=== PATIENT | female | born 1950 | race Caucasian/White ===

== ENCOUNTER 2021-01-30 11:36 | Inpatient (IN) ==
[2021-01-30] MEDS ORDERED: Melatonin 3 MG TABLET PO PRN (14:21)
[2021-01-30] MEDS ORDERED: Naloxone 0.4 MG/ML INJ IVP PRN (14:21)
[2021-01-30] MEDS ORDERED: 0.9 % Sodium Chloride 1,000 ML IVC SCH (14:30)
[2021-01-30] MEDS ORDERED: MetroNIDAZOLE 500 MG/100 ML 500 MG/100 ML BAG IVPB SCH (15:00)
[2021-01-30] MEDS: MetroNIDAZOLE 500 MG/100 ML 500 MG/100 ML BAG IVPB SCH (15:34)
[2021-01-30 16:41] LABS: Albumin 2.5 g/dL (3.5-5.7); Albumin/Globulin Ratio 1.1 (1.1-2.2); Bilirubin,Total 0.7 mg/dL (0.3-1.0); Calcium 7.2 mg/dL (8.6-10.3); Globulin 2.2 g/dL (2.4-3.5); Magnesium 1.6 mg/dL (1.6-2.6); Potassium 4.3 mEq/L (3.5-5.1); Total Protein 4.7 g/dL (6.4-8.9)
[2021-01-30 18:47] LABS: Basophils % 0.3 %; Hemoglobin 8.5 g/dL (11.5-15.4); Immature Granulocytes % 0.3 % (0-4); Lymphocytes % 4.4 %; White Blood Count 14.7 K/mcL (4.3-11.1)
[2021-01-30 18:49] LABS: Hematocrit 27.5 % (35.3-44.9); Mean Corpuscular HGB Conc 30.9 g/dL (31.6-35.5); Mean Corpuscular Hemoglobin 33.3 pg (28.0-33.3); Mean Corpuscular Volume 107.8 fL (83.0-100.0); Mean Platelet Volume 11.1 fL (9.4-12.4); Monocytes # 0.6 K/mcL (0.0-1.3); Monocytes % 4.1 %; Neutrophils # 13.2 K/mcL (1.6-8.9); Red Blood Count 2.55 M/mcL (3.82-4.97); Red Cell Distribution Width 16.9 % (11.5-14.5); Segmented Neutrophils % 89.9 %
[2021-01-30] MEDS: *HR* Heparin 5,000 UNIT/ML VIAL SQ SCH (19:11)
[2021-01-30 19:20] LABS: Eosinophils # 0.2 K/mcL (0.0-0.6); Lymphocytes # 0.7 K/mcL (0.6-4.6)
[2021-01-30 19:21] LABS: Platelet Count 66 K/mcL (140-400)
[2021-01-30 19:22] LABS: Platelet Estimate Decreased (Normal)
[2021-01-31] MEDS: MetroNIDAZOLE 500 MG/100 ML 500 MG/100 ML BAG IVPB SCH ×4 (00:23→23:33)
[2021-01-31] MEDS: *HR* Heparin 5,000 UNIT/ML VIAL SQ SCH ×2 (05:25→20:22)
[2021-01-31] MEDS ORDERED: cefOXitin 1,000 MG, 0.9 % Sodium Chloride 1,000 ML IR ONE (08:00)
[2021-01-31] MEDS ORDERED: Albumin 25% 25gram/100mL 25 GM/100 ML IV.SOLN IVPB ONE (08:46)
[2021-01-31] MEDS ORDERED: *HR* Heparin 10,000 UNIT/10 ML VIAL IV PRN (08:46)
[2021-01-31] MEDS ORDERED: 0.9 % Sodium Chloride 250 ML IVC PRN (08:46)
[2021-01-31 08:56] LABS: Hepatitis B Surface Antibody 7.07 mIU/mL
[2021-01-31] MEDS ORDERED: 0.9 % Sodium Chloride 1,000 ML PRIME SCH (09:00)
[2021-01-31 09:07] LABS: Hepatitis B Surface Antigen Nonreactive (Nonreactive)
[2021-01-31] MEDS: Nystatin POWDER 30 GM BOTTLE TP SCH ×3 (11:14→20:23)
[2021-01-31] MEDS ORDERED: *HR* FentaNYL (PF) 100 MCG/2 ML VIAL ONE (12:14)
[2021-01-31] MEDS ORDERED: *HR* Propofol 200 MG/20 ML VIAL IVP ONE (12:14)
[2021-01-31] MEDS ORDERED: *HR* OxyCODONE/APAP 5/325 TABLET PO PRN (12:22)
[2021-01-31] MEDS ORDERED: Ketorolac 15 MG/ML VIAL IVP PRN (12:23)
[2021-01-31] MEDS ORDERED: *HR* Rocuronium Bromide 50 MG/5 ML VIAL ONE (12:28)
[2021-01-31] MEDS ORDERED: Lidocaine -MPF 2% 5 ML VIAL ONE (12:28)
[2021-01-31] MEDS ORDERED: Ondansetron 4 MG/2 ML VIAL ONE (12:28)
[2021-01-31] MEDS ORDERED: Lidocaine HCL 4 ML Topical Solution (Laryng-O-Jet Kit Sterile Pak) TP ONE (12:28)
[2021-01-31] MEDS ORDERED: *HR* Succinylcholine 200 MG/10 ML VIAL IVP ONE (12:28)
[2021-01-31] MEDS: Ketorolac 30 MG/ML VIAL IVP PRN ×2 (12:57→20:17)
[2021-01-31] MEDS ORDERED: CefOXitin 1,000 MG VIAL ONE (15:37)
[2021-01-31] MEDS ORDERED: Isovue-300 50ML VIAL ONE (15:38)
[2021-01-31] MEDS ORDERED: Sugammadex Sodium 200 MG/2 ML VIAL IV ONE (17:55)
[2021-02-01] MEDS: Ketorolac 30 MG/ML VIAL IVP PRN (02:51)
[2021-02-01] MEDS: *HR* Heparin 5,000 UNIT/ML VIAL SQ SCH (06:54)
[2021-02-01] MEDS ORDERED: cefOXitin 1,000 MG, 0.9 % Sodium Chloride 1,000 ML IR ONE (07:28)
[2021-02-01] MEDS ORDERED: 0.9 % Sodium Chloride 250 ML IVC PRN (07:28)
[2021-02-01] MEDS ORDERED: Naloxone 0.4 MG/ML INJ IVP PRN ×2 (07:28→16:01)
[2021-02-01] MEDS ORDERED: Ketorolac 30 MG/ML VIAL IVP PRN (07:28)
[2021-02-01] MEDS ORDERED: *HR* OxyCODONE/APAP 5/325 TABLET PO PRN (07:28)
[2021-02-01] MEDS ORDERED: *HR* Heparin 10,000 UNIT/10 ML VIAL IV PRN (07:28)
[2021-02-01] MEDS ORDERED: Melatonin 3 MG TABLET PO PRN (07:28)
[2021-02-01] MEDS ORDERED: 0.9 % Sodium Chloride 1,000 ML PRIME SCH (07:28)
[2021-02-01] MEDS: MetroNIDAZOLE 500 MG/100 ML 500 MG/100 ML BAG IVPB SCH ×2 (08:22→18:53)
[2021-02-01 08:26] LABS: Hematocrit 22.9 % (35.3-44.9); Immature Platelets 6.5 % (1.1-6.1); Mean Corpuscular HGB Conc 30.6 g/dL (31.6-35.5); Mean Platelet Volume 11.4 fL (9.4-12.4); Red Blood Count 2.12 M/mcL (3.82-4.97); White Blood Count 13.4 K/mcL (4.3-11.1)
[2021-02-01] MEDS: Nystatin POWDER 30 GM BOTTLE TP SCH ×3 (08:29→20:22)
[2021-02-01 08:43] LABS: Calcium 7.5 mg/dL (8.6-10.3); Potassium 4.2 mEq/L (3.5-5.1)
[2021-02-01 08:51] LABS: Albumin 2.8 g/dL (3.5-5.7); Albumin/Globulin Ratio 1.4 (1.1-2.2); Bilirubin,Direct 0.2 mg/dL (0.0-0.2); Bilirubin,Indirect 0.6 mg/dL (0.0-1.0); Bilirubin,Total 0.8 mg/dL (0.3-1.0); Total Protein 4.8 g/dL (6.4-8.9)
[2021-02-01] MEDS ORDERED: 0.9 % Sodium Chloride 250 ML ONE (11:04)
[2021-02-01] MEDS: 0.9 % Sodium Chloride 250 ML IVC ONE (11:13)
[2021-02-01] MEDS ORDERED: *HR* FentaNYL (PF) 100 MCG/2 ML VIAL ONE ×2 (15:22→17:02)
[2021-02-01] MEDS ORDERED: *HR* Propofol 200 MG/20 ML VIAL IVP ONE (15:22)
[2021-02-01] MEDS ORDERED: Lidocaine -MPF 2% 2 ML VIAL ONE (15:23)
[2021-02-01] MEDS ORDERED: *HR* Rocuronium Bromide 50 MG/5 ML VIAL ONE (15:23)
[2021-02-01] MEDS ORDERED: Ondansetron 4 MG/2 ML VIAL ONE (15:23)
[2021-02-01] MEDS ORDERED: Nitroglycerin 0.4 MG TAB.SUBL SL PRN (16:01)
[2021-02-01] MEDS ORDERED: *HR* FentaNYL (PF) 100 MCG/2 ML VIAL IVP PRN (16:01)
[2021-02-01] MEDS ORDERED: *HR* HYDROmorphone (PF) 1 MG/ML SYRINGE IVP PRN (16:01)
[2021-02-01] MEDS ORDERED: Albuterol 2.5 MG/3 ML NEBULIZER IH PRN (16:01)
[2021-02-01] MEDS ORDERED: Ondansetron 4 MG/2 ML VIAL IVP PRN (16:01)
[2021-02-01] MEDS ORDERED: Indomethacin 50 MG SUPP.RECT RC ONE (16:25)
[2021-02-01] MEDS ORDERED: *HR* Heparin 5,000 UNIT/ML VIAL SQ SCH (18:00)
[2021-02-01] MEDS: rOPINIRole 1 MG TABLET PO SCH (20:22)
[2021-02-02] MEDS: 0.9 % Sodium Chloride 250 ML IVC ONE (02:04)
[2021-02-02] MEDS: MetroNIDAZOLE 500 MG/100 ML 500 MG/100 ML BAG IVPB SCH ×3 (02:23→16:11)
[2021-02-02] MEDS ORDERED: Ringers Solution, Lactated 1,000 ML IVC ONE (07:47)
[2021-02-02] MEDS: rOPINIRole 1 MG TABLET PO SCH ×2 (07:54→19:33)
[2021-02-02] MEDS: Nystatin POWDER 30 GM BOTTLE TP SCH ×3 (07:56→19:33)
[2021-02-02 08:02] LABS: Hematocrit 20.7 % (35.3-44.9); Lymphocytes % 7.9 %
[2021-02-02 08:04] LABS: Basophils % 0.1 %; Hemoglobin 6.2 g/dL (11.5-15.4); Immature Granulocytes % 0.5 % (0-4); Immature Platelets 6.1 % (1.1-6.1); Lymphocytes # 0.7 K/mcL (0.6-4.6); Mean Corpuscular Hemoglobin 32.6 pg (28.0-33.3); Mean Corpuscular Volume 108.9 fL (83.0-100.0); Mean Platelet Volume 11.8 fL (9.4-12.4); Monocytes # 0.4 K/mcL (0.0-1.3); Neutrophils # 7.7 K/mcL (1.6-8.9); Red Cell Distribution Width 17.2 % (11.5-14.5); Segmented Neutrophils % 87.5 %; White Blood Count 8.8 K/mcL (4.3-11.1)
[2021-02-02 08:05] LABS: Platelet Count 71 K/mcL (140-400)
[2021-02-02 08:14] LABS: Albumin 2.7 g/dL (3.5-5.7); Albumin/Globulin Ratio 1.3 (1.1-2.2); Bilirubin,Direct 0.2 mg/dL (0.0-0.2); Bilirubin,Indirect 0.4 mg/dL (0.0-1.0); Bilirubin,Total 0.6 mg/dL (0.3-1.0); Calcium 7.5 mg/dL (8.6-10.3); Globulin 2.1 g/dL (2.4-3.5); Potassium 3.9 mEq/L (3.5-5.1); Total Protein 4.8 g/dL (6.4-8.9)
[2021-02-02] MEDS ORDERED: *HR* Heparin 10,000 UNIT/10 ML VIAL IV PRN ×2 (08:26)
[2021-02-02] MEDS ORDERED: 0.9 % Sodium Chloride 250 ML IVC PRN (08:26)
[2021-02-02 08:30] LABS: INR 1.6; Prothrombin Time 17.5 Seconds (9.4-12.1)
[2021-02-02] MEDS ORDERED: Albumin 25% 25gram/100mL 25 GM/100 ML IV.SOLN IVPB ONE (08:31)
[2021-02-02] MEDS ORDERED: Acyclovir 200 MG CAPSULE PO SCH (09:00)
[2021-02-02] MEDS ORDERED: Acetaminophen IV 1,000 MG/100 ML BAG IVPB ONE (09:40)
[2021-02-02] MEDS ORDERED: 0.9 % Sodium Chloride 250 ML IVC SCH (17:30)
[2021-02-02 18:04] LABS: Hemoglobin 6.1 g/dL (11.5-15.4)
[2021-02-03] MEDS: MetroNIDAZOLE 500 MG/100 ML 500 MG/100 ML BAG IVPB SCH ×4 (00:58→23:30)
[2021-02-03 05:15] LABS: Hemoglobin 7.2 g/dL (11.5-15.4)
[2021-02-03 05:17] LABS: Hematocrit 23.7 % (35.3-44.9); Immature Platelets 6.4 % (1.1-6.1); Mean Corpuscular HGB Conc 30.4 g/dL (31.6-35.5); Mean Corpuscular Hemoglobin 32.1 pg (28.0-33.3); Mean Corpuscular Volume 105.8 fL (83.0-100.0); Mean Platelet Volume 10.8 fL (9.4-12.4); Red Blood Count 2.24 M/mcL (3.82-4.97); Red Cell Distribution Width 19.8 % (11.5-14.5); White Blood Count 10.4 K/mcL (4.3-11.1)
[2021-02-03 05:32] LABS: Calcium 7.7 mg/dL (8.6-10.3); Potassium 3.3 mEq/L (3.5-5.1)
[2021-02-03] MEDS: rOPINIRole 1 MG TABLET PO SCH ×2 (07:51→19:54)
[2021-02-03] MEDS: Nystatin POWDER 30 GM BOTTLE TP SCH ×3 (08:05→21:13)
[2021-02-03] MEDS: Ondansetron 4 MG/2 ML VIAL IVP PRN ×2 (10:02→18:32)
[2021-02-03] MEDS ORDERED: *HR* Promethazine 25 MG/ML VIAL IM ONE (10:46)
[2021-02-03] MEDS ORDERED: Prochlorperazine 10 MG/2 ML VIAL IVP PRN ×2 (12:22→19:49)
[2021-02-03] MEDS ORDERED: *HR* HYDROmorphone (PF) 1 MG/ML SYRINGE IVP PRN (12:27)
[2021-02-03] MEDS ORDERED: Sulfamethoxazole/Trimeth SS 1 TAB PO SCH (16:00)
[2021-02-03] MEDS: Acyclovir 200 MG CAPSULE PO SCH (17:02)
[2021-02-03] MEDS ORDERED: Thiamine (B-1) 100 MG in 0.9 % Sodium Chloride 50 ML IVPB ONE (18:43)
[2021-02-03] MEDS ORDERED: Cyanocobalamin (B-12) 1,000 MCG/ML VIAL SQ ONE (18:43)
[2021-02-04] MEDS: Ondansetron 4 MG/2 ML VIAL IVP PRN (03:19)
[2021-02-04 05:33] LABS: Basophils % 0.7 %; Mean Corpuscular HGB Conc 29.3 g/dL (31.6-35.5)
[2021-02-04 05:35] LABS: Basophils # 0.1 K/mcL (0.0-0.2); Eosinophils # 0.9 K/mcL (0.0-0.6); Eosinophils % 8.9 %; Hematocrit 27.6 % (35.3-44.9); Hemoglobin 8.1 g/dL (11.5-15.4); Immature Granulocytes % 3.1 % (0-4); Immature Platelets 4.3 % (1.1-6.1); Lymphocytes # 1.4 K/mcL (0.6-4.6); Lymphocytes % 13.9 %; Mean Corpuscular Hemoglobin 32.4 pg (28.0-33.3); Mean Corpuscular Volume 110.4 fL (83.0-100.0); Monocytes # 0.7 K/mcL (0.0-1.3); Monocytes % 7.1 %; Neutrophils # 6.6 K/mcL (1.6-8.9); Nucleated Red Blood Cells 0.5 /100 WBC (0); Red Cell Distribution Width 20.2 % (11.5-14.5); Segmented Neutrophils % 66.3 %
[2021-02-04 05:36] LABS: Platelet Count 68 K/mcL (140-400)
[2021-02-04] MEDS ORDERED: Acetaminophen IV 1,000 MG/100 ML BAG IVPB ONE (05:50)
[2021-02-04 05:52] LABS: Macrocytosis Present (Not Present)
[2021-02-04 05:53] LABS: Anisocytosis 2+ (Not Present); Calcium 7.4 mg/dL (8.6-10.3); Magnesium 1.6 mg/dL (1.6-2.6); Phosphorous 2.5 mg/dL (2.7-4.5); Platelet Estimate Decreased (Normal); Potassium 4.1 mEq/L (3.5-5.1)
[2021-02-04] MEDS: rOPINIRole 1 MG TABLET PO SCH ×2 (08:13→19:46)
[2021-02-04] MEDS: MetroNIDAZOLE 500 MG/100 ML 500 MG/100 ML BAG IVPB SCH ×2 (08:13→15:47)
[2021-02-04] MEDS: Nystatin POWDER 30 GM BOTTLE TP SCH ×3 (08:17→19:47)
[2021-02-04] MEDS ORDERED: 0.9 % Sodium Chloride 250 ML IVC PRN (08:47)
[2021-02-04] MEDS ORDERED: *HR* Heparin 10,000 UNIT/10 ML VIAL IV PRN ×2 (08:47)
[2021-02-04] MEDS: Acyclovir 200 MG CAPSULE PO SCH (15:47)
[2021-02-05] MEDS ORDERED: Albumin 25% 25gram/100mL 25 GM/100 ML IV.SOLN IVPB ONE (00:09)
[2021-02-05] MEDS: MetroNIDAZOLE 500 MG/100 ML 500 MG/100 ML BAG IVPB SCH ×3 (00:25→14:26)
[2021-02-05 02:58] LABS: Immature Granulocytes % 4.2 % (0-4); Nucleated Red Blood Cells 0.9 /100 WBC (0); Red Blood Count 2.39 M/mcL (3.82-4.97); Red Cell Distribution Width 19.9 % (11.5-14.5)
[2021-02-05 03:00] LABS: Basophils # 0.1 K/mcL (0.0-0.2); Basophils % 0.7 %; Eosinophils # 0.7 K/mcL (0.0-0.6); Eosinophils % 8.2 %; Hematocrit 25.7 % (35.3-44.9); Hemoglobin 7.7 g/dL (11.5-15.4); Immature Platelets 5.3 % (1.1-6.1); Lymphocytes # 1.4 K/mcL (0.6-4.6); Mean Corpuscular Hemoglobin 32.2 pg (28.0-33.3); Mean Corpuscular Volume 107.5 fL (83.0-100.0); Mean Platelet Volume 11.2 fL (9.4-12.4); Monocytes # 0.7 K/mcL (0.0-1.3); Monocytes % 7.9 %
[2021-02-05 03:15] LABS: Neutrophils # 5.7 K/mcL (1.6-8.9); Platelet Count 72 K/mcL (140-400)
[2021-02-05 03:20] LABS: Calcium 7.7 mg/dL (8.6-10.3); Magnesium 1.6 mg/dL (1.6-2.6); Potassium 3.8 mEq/L (3.5-5.1)
[2021-02-05] MEDS: rOPINIRole 1 MG TABLET PO SCH ×2 (09:18→22:45)
[2021-02-05] MEDS: Nystatin POWDER 30 GM BOTTLE TP SCH ×3 (09:22→22:45)
[2021-02-05 11:44] LABS: Adenovirus F 40/41 PCR Not detected (Not detect); Astrovirus PCR Not detected (Not detect); C.difficile Toxin A/B Gene PCR Not detected (Not detect); Campylobacter by PCR Not detected (Not detect); Cryptosporidium by PCR Not detected (Not detect); Cyclospora cayetanensis PCR Not detected (Not detect); E. coli O157 by PCR Not detected (Not detect); Entamoeba histolytica PCR Not detected (Not detect); Enteroaggregative E.coli(EAEC) Not detected (Not detect); Enteropathogenic E.coli(EPEC) Not detected (Not detect); Enterotoxigenic E.coli (ETEC) Not detected (Not detect); Giardia lamblia PCR Not detected (Not detect); Norovirus GI/GII PCR Not detected (Not detect); Plesiomonas shigelloides PCR Not detected (Not detect); Rotavirus A PCR Not detected (Not detect); Salmonella PCR Not detected (Not detect); Sapovirus PCR Not detected (Not detect); Shig/EnteroinvasiveE coli EIEC Not detected (Not detect); Shigalike tox-prod E coli STEC Not detected (Not detect); Vibrio PCR Not detected (Not detect); Vibrio cholerae PCR Not detected (Not detect); Yersinia enterocolitica PCR Not detected (Not detect)
[2021-02-05] MEDS ORDERED: 0.9 % Sodium Chloride 1,000 ML IV ONE (14:15)
[2021-02-05] MEDS: Acyclovir 200 MG CAPSULE PO SCH (14:25)
[2021-02-05] MEDS: *HR* OxyCODONE/APAP 5/325 TABLET PO PRN (14:25)
[2021-02-06 05:42] LABS: Basophils % 0.9 %; Eosinophils % 9.8 %; Hemoglobin 8.2 g/dL (11.5-15.4); INR 1.2; Prothrombin Time 13.1 Seconds (9.4-12.1)
[2021-02-06 05:44] LABS: Basophils # 0.1 K/mcL (0.0-0.2); Eosinophils # 1.1 K/mcL (0.0-0.6); Immature Granulocytes % 4.1 % (0-4); Immature Platelets 6.3 % (1.1-6.1); Lymphocytes # 1.8 K/mcL (0.6-4.6); Lymphocytes % 15.5 %; Mean Corpuscular HGB Conc 29.3 g/dL (31.6-35.5); Mean Corpuscular Hemoglobin 31.9 pg (28.0-33.3); Mean Corpuscular Volume 108.9 fL (83.0-100.0); Mean Platelet Volume 11.8 fL (9.4-12.4); Monocytes # 0.7 K/mcL (0.0-1.3); Monocytes % 6.4 %; Neutrophils # 7.2 K/mcL (1.6-8.9); Nucleated Red Blood Cells 0.8 /100 WBC (0); Red Blood Count 2.57 M/mcL (3.82-4.97); Segmented Neutrophils % 63.3 %; White Blood Count 11.3 K/mcL (4.3-11.1)
[2021-02-06 05:46] LABS: Calcium 7.6 mg/dL (8.6-10.3); Magnesium 1.6 mg/dL (1.6-2.6); Phosphorous 2.7 mg/dL (2.7-4.5); Potassium 3.9 mEq/L (3.5-5.1)
[2021-02-06 06:12] LABS: Platelet Count 77 K/mcL (140-400)
[2021-02-06 06:13] LABS: Anisocytosis 2+ (Not Present); Hypochromasia Present (Not Present); Macrocytosis Present (Not Present); Polychromasia 1+ (Not Present)
[2021-02-06 06:14] LABS: Platelet Estimate Decreased (Normal)
[2021-02-06] MEDS: Nystatin POWDER 30 GM BOTTLE TP SCH ×3 (10:19→22:10)
[2021-02-06] MEDS: rOPINIRole 1 MG TABLET PO SCH ×2 (10:21→22:10)
[2021-02-06] MEDS: Acyclovir 200 MG CAPSULE PO SCH (16:12)
[2021-02-06] MEDS: Ondansetron 4 MG/2 ML VIAL IVP PRN (23:14)
[2021-02-07 07:13] LABS: Basophils % 0.6 %; Hemoglobin 8.3 g/dL (11.5-15.4)
[2021-02-07 07:15] LABS: Basophils # 0.1 K/mcL (0.0-0.2); Eosinophils # 1.1 K/mcL (0.0-0.6); Eosinophils % 10.4 %; Hematocrit 27.9 % (35.3-44.9); Immature Granulocytes % 3.8 % (0-4); Immature Platelets 5.5 % (1.1-6.1); Lymphocytes # 1.8 K/mcL (0.6-4.6); Lymphocytes % 17.5 %; Mean Corpuscular HGB Conc 29.7 g/dL (31.6-35.5); Mean Corpuscular Hemoglobin 31.9 pg (28.0-33.3); Mean Corpuscular Volume 107.3 fL (83.0-100.0); Mean Platelet Volume 10.8 fL (9.4-12.4); Monocytes # 0.8 K/mcL (0.0-1.3); Monocytes % 7.8 %; Neutrophils # 6.1 K/mcL (1.6-8.9); Nucleated Red Blood Cells 0.4 /100 WBC (0); Red Cell Distribution Width 19.9 % (11.5-14.5); Segmented Neutrophils % 59.9 %; White Blood Count 10.2 K/mcL (4.3-11.1)
[2021-02-07 07:21] LABS: Calcium 7.5 mg/dL (8.6-10.3); Magnesium 1.6 mg/dL (1.6-2.6); Potassium 3.8 mEq/L (3.5-5.1)
[2021-02-07 07:25] LABS: Platelet Count 75 K/mcL (140-400)
[2021-02-07] MEDS: rOPINIRole 1 MG TABLET PO SCH ×2 (09:31→20:43)
[2021-02-07] MEDS: Nystatin POWDER 30 GM BOTTLE TP SCH ×3 (09:32→20:44)
[2021-02-07] MEDS ORDERED: *HR* Heparin 10,000 UNIT/10 ML VIAL IV PRN (11:51)
[2021-02-07] MEDS ORDERED: 0.9 % Sodium Chloride 250 ML IVC PRN (11:51)
[2021-02-07] MEDS: Acyclovir 200 MG CAPSULE PO SCH (15:50)
[2021-02-07] MEDS ORDERED: Famotidine 20 MG/2 ML VIAL IVP ONE (19:01)
[2021-02-07 22:52] LABS: Basophils % 0.4 %; Monocytes % 7.2 %
[2021-02-07 22:54] LABS: Eosinophils # 0.8 K/mcL (0.0-0.6); Eosinophils % 8.6 %; Hematocrit 26.9 % (35.3-44.9); Hemoglobin 8.1 g/dL (11.5-15.4); Immature Platelets 6.1 % (1.1-6.1); Lymphocytes # 1.5 K/mcL (0.6-4.6); Lymphocytes % 15.1 %; Mean Corpuscular HGB Conc 30.1 g/dL (31.6-35.5); Mean Corpuscular Hemoglobin 32.1 pg (28.0-33.3); Mean Corpuscular Volume 106.7 fL (83.0-100.0); Mean Platelet Volume 10.8 fL (9.4-12.4); Monocytes # 0.7 K/mcL (0.0-1.3); Neutrophils # 6.5 K/mcL (1.6-8.9); Nucleated Red Blood Cells 0.3 /100 WBC (0); Red Blood Count 2.52 M/mcL (3.82-4.97); Segmented Neutrophils % 66.7 %; White Blood Count 9.8 K/mcL (4.3-11.1)
[2021-02-07 22:56] LABS: Platelet Count 62 K/mcL (140-400)
[2021-02-08 04:54] LABS: Hematocrit 28.8 % (35.3-44.9); Hemoglobin 8.5 g/dL (11.5-15.4); Immature Platelets 7.1 % (1.1-6.1); Mean Corpuscular HGB Conc 29.5 g/dL (31.6-35.5); Mean Corpuscular Hemoglobin 31.6 pg (28.0-33.3); Mean Corpuscular Volume 107.1 fL (83.0-100.0); Mean Platelet Volume 11.4 fL (9.4-12.4); Red Blood Count 2.69 M/mcL (3.82-4.97); Red Cell Distribution Width 20.1 % (11.5-14.5); White Blood Count 8.5 K/mcL (4.3-11.1)
[2021-02-08 05:12] LABS: Calcium 7.7 mg/dL (8.6-10.3); Magnesium 1.6 mg/dL (1.6-2.6); Phosphorous 3.2 mg/dL (2.7-4.5)
[2021-02-08] MEDS: rOPINIRole 1 MG TABLET PO SCH ×2 (08:56→21:04)
[2021-02-08] MEDS: Nystatin POWDER 30 GM BOTTLE TP SCH ×3 (10:01→21:04)
[2021-02-08] MEDS: Acyclovir 200 MG CAPSULE PO SCH (16:28)
[2021-02-09 06:16] LABS: Hematocrit 31.7 % (35.3-44.9); Hemoglobin 9.4 g/dL (11.5-15.4); Immature Platelets 7.7 % (1.1-6.1); Mean Corpuscular HGB Conc 29.7 g/dL (31.6-35.5); Mean Corpuscular Hemoglobin 31.8 pg (28.0-33.3); Mean Corpuscular Volume 107.1 fL (83.0-100.0); Mean Platelet Volume 11.6 fL (9.4-12.4); Red Blood Count 2.96 M/mcL (3.82-4.97); White Blood Count 7.1 K/mcL (4.3-11.1)
[2021-02-09 06:31] LABS: Potassium 4.2 mEq/L (3.5-5.1)
[2021-02-09 06:42] LABS: Magnesium 1.7 mg/dL (1.6-2.6)
[2021-02-09] MEDS: rOPINIRole 1 MG TABLET PO SCH ×2 (08:11→21:52)
[2021-02-09] MEDS: Nystatin POWDER 30 GM BOTTLE TP SCH ×3 (08:11→21:52)
[2021-02-09] MEDS ORDERED: *HR* Heparin 10,000 UNIT/10 ML VIAL IV PRN (08:23)
[2021-02-09] MEDS ORDERED: 0.9 % Sodium Chloride 250 ML IVC PRN (08:23)
[2021-02-09] MEDS: Acyclovir 200 MG CAPSULE PO SCH (18:20)
[2021-02-10 05:36] LABS: Hematocrit 27.6 % (35.3-44.9); Hemoglobin 8.3 g/dL (11.5-15.4); Mean Corpuscular HGB Conc 30.1 g/dL (31.6-35.5); Mean Corpuscular Hemoglobin 31.9 pg (28.0-33.3); Mean Corpuscular Volume 106.2 fL (83.0-100.0); Mean Platelet Volume 12.3 fL (9.4-12.4); Platelet Count 58 K/mcL (140-400); Red Cell Distribution Width 19.5 % (11.5-14.5); White Blood Count 6.8 K/mcL (4.3-11.1)
[2021-02-10 06:20] LABS: Calcium 7.7 mg/dL (8.6-10.3); Potassium 3.8 mEq/L (3.5-5.1)
[2021-02-10] MEDS: rOPINIRole 1 MG TABLET PO SCH ×2 (09:13→21:45)
[2021-02-10] MEDS: Nystatin POWDER 30 GM BOTTLE TP SCH ×3 (09:14→22:17)
[2021-02-10] MEDS ORDERED: Heparin 1,000 UNITS/500 mL 500 ML ONE (11:27)
[2021-02-10] MEDS ORDERED: Lidocaine/EPI 1:100k 1% 50 ML VIAL ONE (11:28)
[2021-02-10] MEDS ORDERED: 0.9 % Sodium Chloride 500 ML ONE (11:41)
[2021-02-10] MEDS ORDERED: *HR* FentaNYL (PF) 100 MCG/2 ML VIAL ONE (11:51)
[2021-02-10] MEDS ORDERED: *HR* Midazolam HCl 2 MG/2 ML VIAL ONE (11:52)
[2021-02-10] MEDS ORDERED: *HR* FentaNYL (PF) 100 MCG/2 ML VIAL IVP ONE (11:57)
[2021-02-10] MEDS ORDERED: *HR* Midazolam HCl 2 MG/2 ML VIAL IVP ONE (11:57)
[2021-02-10] MEDS ORDERED: Acetaminophen 325 MG TABLET PO ONE (16:45)
[2021-02-10] MEDS ORDERED: Vancomycin (wt based) 1,000 MG VIAL IV ONE (16:48)
[2021-02-10] MEDS ORDERED: Vancomycin 1,750 MG/517.5 ML IV.SOLN IVPB ONE (17:23)
[2021-02-10] MEDS: Acyclovir 200 MG CAPSULE PO SCH (17:46)
[2021-02-10] MEDS: *HR* OxyCODONE/APAP 5/325 TABLET PO PRN (21:45)
[2021-02-11 03:03] LABS: Hematocrit 29.5 % (35.3-44.9); Hemoglobin 8.7 g/dL (11.5-15.4); Immature Platelets 6.6 % (1.1-6.1); Mean Corpuscular HGB Conc 29.5 g/dL (31.6-35.5); Mean Corpuscular Hemoglobin 31.5 pg (28.0-33.3); Mean Corpuscular Volume 106.9 fL (83.0-100.0); Mean Platelet Volume 11.8 fL (9.4-12.4); Red Blood Count 2.76 M/mcL (3.82-4.97); Red Cell Distribution Width 19.6 % (11.5-14.5); White Blood Count 8.7 K/mcL (4.3-11.1)
[2021-02-11 03:21] LABS: Calcium 7.6 mg/dL (8.6-10.3); Potassium 3.9 mEq/L (3.5-5.1)
[2021-02-11] MEDS ORDERED: 0.9 % Sodium Chloride 250 ML IVC PRN (08:11)
[2021-02-11] MEDS ORDERED: *HR* Heparin 10,000 UNIT/10 ML VIAL IV PRN (08:18)
[2021-02-11] MEDS: Ondansetron 4 MG/2 ML VIAL IVP PRN ×2 (08:29→16:03)
[2021-02-11] MEDS: rOPINIRole 1 MG TABLET PO SCH ×2 (10:04→21:47)
[2021-02-11] MEDS: Nystatin POWDER 30 GM BOTTLE TP SCH ×3 (10:05→21:57)
[2021-02-11] MEDS: Prochlorperazine 10 MG/2 ML VIAL IVP PRN (11:58)
[2021-02-11] MEDS ORDERED: rOPINIRole 1 MG TABLET PO SCH (15:00)
[2021-02-11] MEDS: Acyclovir 200 MG CAPSULE PO SCH (16:01)
[2021-02-12 02:45] LABS: Calcium 8.1 mg/dL (8.6-10.3); Potassium 3.8 mEq/L (3.5-5.1)
[2021-02-12] MEDS: Ondansetron 4 MG/2 ML VIAL IVP PRN (08:05)
[2021-02-12] MEDS: rOPINIRole 1 MG TABLET PO SCH ×2 (09:59→19:56)
[2021-02-12] MEDS: Nystatin POWDER 30 GM BOTTLE TP SCH ×3 (09:59→17:10)
[2021-02-12] MEDS ORDERED: Oxymetazoline Nasal SPRAY BOTTLE 15ML NS PRN (12:41)
[2021-02-12] MEDS: Acyclovir 200 MG CAPSULE PO SCH (15:25)
[2021-02-12] MEDS: Prochlorperazine 10 MG/2 ML VIAL IVP PRN (17:10)
[2021-02-13] MEDS: rOPINIRole 1 MG TABLET PO SCH ×2 (08:37→20:29)
[2021-02-13] MEDS: Prochlorperazine 10 MG/2 ML VIAL IVP PRN ×2 (08:37→16:43)
[2021-02-13] MEDS: Acyclovir 200 MG CAPSULE PO SCH (12:16)
[2021-02-13] MEDS: Nystatin POWDER 30 GM BOTTLE TP SCH ×3 (12:16→20:31)
[2021-02-13 12:28] LABS: Calcium 7.9 mg/dL (8.6-10.3); Potassium 3.8 mEq/L (3.5-5.1)
[2021-02-13 14:20] LABS: Basophils # 0.1 K/mcL (0.0-0.2); Basophils % 0.7 %; Eosinophils # 0.2 K/mcL (0.0-0.6); Eosinophils % 1.6 %; Hematocrit 31.7 % (35.3-44.9); Hemoglobin 10.3 g/dL (11.5-15.4); Immature Granulocytes % 2.7 % (0-4); Lymphocytes # 1.6 K/mcL (0.6-4.6); Lymphocytes % 14.8 %; Mean Corpuscular HGB Conc 32.5 g/dL (31.6-35.5); Mean Corpuscular Hemoglobin 32.9 pg (28.0-33.3); Mean Corpuscular Volume 101.3 fL (83.0-100.0); Mean Platelet Volume 12.5 fL (9.4-12.4); Monocytes # 0.7 K/mcL (0.0-1.3); Neutrophils # 8.2 K/mcL (1.6-8.9); Platelet Count 72 K/mcL (140-400); Red Blood Count 3.13 M/mcL (3.82-4.97); Red Cell Distribution Width 18.8 % (11.5-14.5); Segmented Neutrophils % 74.2 %
[2021-02-13 14:24] LABS: Platelet Estimate Decreased (Normal)
[2021-02-14] MEDS: Ondansetron 4 MG/2 ML VIAL IVP PRN (00:42)
[2021-02-14] MEDS ORDERED: 0.9 % Sodium Chloride 250 ML IVC PRN (06:59)
[2021-02-14] MEDS: Prochlorperazine 10 MG/2 ML VIAL IVP PRN ×2 (07:58→14:05)
[2021-02-14] MEDS: rOPINIRole 1 MG TABLET PO SCH ×2 (07:58→22:05)
[2021-02-14 07:59] LABS: Calcium 7.9 mg/dL (8.6-10.3); Potassium 3.5 mEq/L (3.5-5.1)
[2021-02-14] MEDS: Nystatin POWDER 30 GM BOTTLE TP SCH ×3 (07:59→23:38)
[2021-02-14] MEDS ORDERED: *HR* Heparin 10,000 UNIT/10 ML VIAL IV PRN (10:00)
[2021-02-14] MEDS ORDERED: rOPINIRole 1 MG TABLET PO ONE (12:28)
[2021-02-14] MEDS: Acyclovir 200 MG CAPSULE PO SCH (15:21)
[2021-02-15] MEDS: rOPINIRole 1 MG TABLET PO SCH ×2 (09:10→20:06)
[2021-02-15] MEDS: Nystatin POWDER 30 GM BOTTLE TP SCH ×3 (10:13→20:06)
[2021-02-15] MEDS: Acyclovir 200 MG CAPSULE PO SCH (17:04)
[2021-02-16 06:27] LABS: Hemoglobin 9.9 g/dL (11.5-15.4); Lymphocytes % 18.3 %
[2021-02-16 06:29] LABS: Basophils # 0.1 K/mcL (0.0-0.2); Basophils % 0.6 %; Eosinophils # 0.3 K/mcL (0.0-0.6); Eosinophils % 4.4 %; Hematocrit 33.7 % (35.3-44.9); Immature Granulocytes % 0.4 % (0-4); Immature Platelets 8.9 % (1.1-6.1); Lymphocytes # 1.4 K/mcL (0.6-4.6); Mean Corpuscular HGB Conc 29.4 g/dL (31.6-35.5); Mean Corpuscular Hemoglobin 31.1 pg (28.0-33.3); Mean Platelet Volume 11.8 fL (9.4-12.4); Monocytes # 0.7 K/mcL (0.0-1.3); Monocytes % 8.7 %; Neutrophils # 5.3 K/mcL (1.6-8.9); Platelet Count 62 K/mcL (140-400); Red Blood Count 3.18 M/mcL (3.82-4.97); Red Cell Distribution Width 18.7 % (11.5-14.5); Segmented Neutrophils % 67.6 %; White Blood Count 7.8 K/mcL (4.3-11.1)
[2021-02-16 06:55] LABS: Calcium 8.4 mg/dL (8.6-10.3); Potassium 3.2 mEq/L (3.5-5.1)
[2021-02-16] MEDS ORDERED: 0.9 % Sodium Chloride 250 ML IVC PRN (06:58)
[2021-02-16] MEDS: rOPINIRole 1 MG TABLET PO SCH ×2 (07:48→19:32)
[2021-02-16] MEDS: Nystatin POWDER 30 GM BOTTLE TP SCH ×3 (08:30→19:32)
[2021-02-16] MEDS ORDERED: *HR* Heparin 10,000 UNIT/10 ML VIAL IV PRN (12:05)
[2021-02-16] MEDS: Acyclovir 200 MG CAPSULE PO SCH (16:35)
[2021-02-16] MEDS: Prochlorperazine 10 MG/2 ML VIAL IVP PRN (19:36)
[2021-02-17] MEDS: Prochlorperazine 10 MG/2 ML VIAL IVP PRN ×3 (02:29→18:41)
[2021-02-17 05:17] LABS: Hematocrit 33.3 % (35.3-44.9); Immature Platelets 9.5 % (1.1-6.1); Mean Corpuscular Hemoglobin 31.5 pg (28.0-33.3); Mean Platelet Volume 12.4 fL (9.4-12.4); Red Blood Count 3.17 M/mcL (3.82-4.97); Red Cell Distribution Width 18.6 % (11.5-14.5); White Blood Count 7.6 K/mcL (4.3-11.1)
[2021-02-17 05:31] LABS: Calcium 8.2 mg/dL (8.6-10.3); Potassium 3.7 mEq/L (3.5-5.1)
[2021-02-17] MEDS: Nystatin POWDER 30 GM BOTTLE TP SCH ×3 (07:37→19:45)
[2021-02-17] MEDS: rOPINIRole 1 MG TABLET PO SCH ×2 (07:37→19:44)
[2021-02-17] MEDS: Acyclovir 200 MG CAPSULE PO SCH (17:08)
[2021-02-18 02:13] LABS: Immature Granulocytes % 0.5 % (0-4)
[2021-02-18 02:15] LABS: Basophils # 0.1 K/mcL (0.0-0.2); Basophils % 0.6 %; Eosinophils # 0.2 K/mcL (0.0-0.6); Eosinophils % 2.6 %; Hematocrit 34.1 % (35.3-44.9); Hemoglobin 10.6 g/dL (11.5-15.4); Immature Platelets 8.1 % (1.1-6.1); Lymphocytes # 1.5 K/mcL (0.6-4.6); Lymphocytes % 18.1 %; Mean Corpuscular HGB Conc 31.1 g/dL (31.6-35.5); Mean Corpuscular Hemoglobin 32.6 pg (28.0-33.3); Mean Corpuscular Volume 104.9 fL (83.0-100.0); Mean Platelet Volume 12.4 fL (9.4-12.4); Monocytes # 0.8 K/mcL (0.0-1.3); Monocytes % 9.9 %; Neutrophils # 5.8 K/mcL (1.6-8.9); Red Blood Count 3.25 M/mcL (3.82-4.97); Red Cell Distribution Width 18.7 % (11.5-14.5); Segmented Neutrophils % 68.3 %; White Blood Count 8.5 K/mcL (4.3-11.1)
[2021-02-18 02:19] LABS: Platelet Count 49 K/mcL (140-400)
[2021-02-18 02:28] LABS: Calcium 8.5 mg/dL (8.6-10.3); Potassium 3.6 mEq/L (3.5-5.1)
[2021-02-18] MEDS: Prochlorperazine 10 MG/2 ML VIAL IVP PRN (06:36)
[2021-02-18] MEDS ORDERED: 0.9 % Sodium Chloride 250 ML IVC PRN (06:53)
[2021-02-18] MEDS: rOPINIRole 1 MG TABLET PO SCH ×2 (08:37→20:59)
[2021-02-18] MEDS: Nystatin POWDER 30 GM BOTTLE TP SCH ×3 (08:37→20:59)
[2021-02-18] MEDS ORDERED: *HR* Heparin 10,000 UNIT/10 ML VIAL IV PRN (13:04)
[2021-02-18] MEDS: Acyclovir 200 MG CAPSULE PO SCH (17:50)
[2021-02-19] MEDS: Prochlorperazine 10 MG/2 ML VIAL IVP PRN (07:01)
[2021-02-19] MEDS: rOPINIRole 1 MG TABLET PO SCH ×2 (09:16→20:57)
[2021-02-19] MEDS: Nystatin POWDER 30 GM BOTTLE TP SCH ×3 (09:17→21:01)
[2021-02-19] MEDS ORDERED: Perflutren Lipid Microsphere 1.3 ML in 0.9 % Sodium Chloride 8.7 ML IVP PRN (12:37)
[2021-02-19] MEDS: Acyclovir 200 MG CAPSULE PO SCH (16:35)
[2021-02-20] MEDS: rOPINIRole 1 MG TABLET PO SCH ×2 (08:09→20:43)
[2021-02-20] MEDS: Nystatin POWDER 30 GM BOTTLE TP SCH ×3 (08:10→20:43)
[2021-02-20] MEDS: Acyclovir 200 MG CAPSULE PO SCH (15:11)
[2021-02-20] MEDS: Prochlorperazine 10 MG/2 ML VIAL IVP PRN (23:12)
[2021-02-21 02:23] LABS: Hematocrit 34.2 % (35.3-44.9); Hemoglobin 10.6 g/dL (11.5-15.4); Red Cell Distribution Width 18.3 % (11.5-14.5)
[2021-02-21 02:25] LABS: Basophils % 0.7 %; Eosinophils # 0.2 K/mcL (0.0-0.6); Eosinophils % 3.3 %; Immature Granulocytes % 0.3 % (0-4); Immature Platelets 8.5 % (1.1-6.1); Lymphocytes # 1.5 K/mcL (0.6-4.6); Lymphocytes % 24.6 %; Mean Corpuscular Hemoglobin 31.8 pg (28.0-33.3); Mean Corpuscular Volume 102.7 fL (83.0-100.0); Mean Platelet Volume 12.2 fL (9.4-12.4); Monocytes # 0.7 K/mcL (0.0-1.3); Monocytes % 11.6 %; Neutrophils # 3.6 K/mcL (1.6-8.9); Red Blood Count 3.33 M/mcL (3.82-4.97); Segmented Neutrophils % 59.5 %; White Blood Count 6.1 K/mcL (4.3-11.1)
[2021-02-21 02:28] LABS: Calcium 8.3 mg/dL (8.6-10.3); Potassium 3.9 mEq/L (3.5-5.1)
[2021-02-21 02:46] LABS: Platelet Count 45 K/mcL (140-400)
[2021-02-21] MEDS: Prochlorperazine 10 MG/2 ML VIAL IVP PRN (07:59)
[2021-02-21] MEDS: Nystatin POWDER 30 GM BOTTLE TP SCH ×2 (08:01→15:11)
[2021-02-21] MEDS: rOPINIRole 1 MG TABLET PO SCH (08:01)
[2021-02-21] MEDS ORDERED: 0.9 % Sodium Chloride 250 ML IVC PRN (08:50)
[2021-02-21] MEDS ORDERED: *HR* Heparin 10,000 UNIT/10 ML VIAL IV PRN (08:50)
[2021-02-21] MEDS ORDERED: 0.9 % Sodium Chloride 1,000 ML PRIME SCH (09:00)
[2021-02-21] MEDS: Acyclovir 200 MG CAPSULE PO SCH (15:15)
[2021-02-21 15:59] VITALS: BP 109/54; PULSE 85; TEMP 98.7; O2SAT 94
[2021-02-21 17:03] LABS: Adenovirus Not Detected (Not Detect); Bordetella Pertussis Not Detected (Not Detect); Chlamydophila pneumoniae Not Detected (Not Detect); Coronavirus 229E Not Detected (Not Detect); Coronavirus HKU1 Not Detected (Not Detect); Coronavirus NL63 Not Detected (Not Detect); Coronavirus OC43 Not Detected (Not Detect); Human Metapneumovirus Not Detected (Not Detect); Human Rhinovirus/Enterovirus Not Detected (Not Detect); Influenza A Subtype 2009 H1 Not Detected (Not Detect); Influenza B Not Detected (Not Detect); Mycoplasma pneumoniae Not Detected (Not Detect); Parainfluenza Virus 1 Not Detected (Not Detect); Parainfluenza Virus 2 Not Detected (Not Detect); Parainfluenza Virus 3 Not Detected (Not Detect); Parainfluenza Virus 4 Not Detected (Not Detect); Respiratory Syncytial Virus Not Detected (Not Detect); SARS-CoV-2 Not Detected (Not Detect)
== END 2021-02-21 18:42 | DRG 853 ==
LOC: 2ANU → SUATTDRO 13:41 → 2ANU 02-11 21:00
PROVIDERS: ADMIT Internal Medicine; ATTEND General Practice
PROC: IRPERMA (2021-02-10 12:00)